=== PATIENT | female | born 1955 | race Caucasian/White ===

== ENCOUNTER → 2016-09-19 | Outpatient (CLI) | payer BC ==
--- NOTE | 2016-09-19 17:06 | MY ---
EXAMINATION: Left digital diagnostic mammogram with targeted ultrasound. HISTORY: Follow-up. Comparison: 03/14/2016. FINDINGS: Left CC, MLO, and ML projections obtained. Targeted ultrasound evaluation of the upper outer left breast. Again noted are postsurgical changes within the upper outer quadrant of the left breast. Mammographi carine, this appears similar without a definite nodular area noted. Sonographically there is a hypoechoic 3.6 x 1.3 cm vague masslike collection within the postoperativ e bed. Overall this appears slightly decreased in size, however, there are a few pockets of internal vascularity of uncertain etiology. IMPRESSION: BI-RADS category IV: Suspicious abnormality. There is likely heterogeneous postoperativ e changes noted within the upper outer quadrant, however, due to underlying vascularity ultrasound-g uided biopsy should be performed. THE FALSE-NEGATIVE RATE OF MAMMOGRAM IS APPROXIMATELY 10%. MANAGEMENT OF A PALPABLE ABNORMALITY MUST BE BASED UPON CLINICAL GROUNDS. SENSITIVITY FOR DETECTION OF ABNORMALITIES IN DENSE BREASTS IS LOW. NOTE: A letter will be sent to the patient regarding findings. [facility] -- LORI Jaeger [phone] - FAX [phone]
== END ==
LOC: MW.MAM 12:48
PROVIDERS: ATTEND Obstetrics & Gynecology
DX: R92.8 Other abnormal and inconclusive findings on diagnostic imaging of breast (principal)
CPT/HCPCS: 76641; G0206

== ENCOUNTER → 2016-10-16 | Outpatient (CLI) | payer BC | LOC: MW.LAB 07:56 | PROVIDERS: ATTEND Internal Medicine Critical Care Medicine | DX: A31.0 Pulmonary mycobacterial infection (principal) | CPT/HCPCS: 36415; 82565; 84132; 84460; 85025; 85652 ==

== ENCOUNTER → 2016-11-15 | Outpatient (CLI) | payer BC | LOC: MW.LAB 13:18 | PROVIDERS: ATTEND Internal Medicine Critical Care Medicine | DX: A31.0 Pulmonary mycobacterial infection (principal) | CPT/HCPCS: 36415; 82565; 84132; 84460; 85025; 85652 ==

== ENCOUNTER 2025-02-13 07:10 | Day surgery (SDC) | payer MEDICARE, OTHER ==
[2025-02-13] MEDS ORDERED: propofoL 500 MG/50 ML 50 ML ONE (07:31)
[2025-02-13] MEDS: Lactated Ringers 1,000 ML IV SCH (07:37)
[2025-02-13] MEDS ORDERED: dexmedeTOMIDine HCl 200 MCG/2 ML SDV ONE (08:45)
[2025-02-13] MEDS ORDERED: Propofol 200 MG/20 ML SDV ONE (09:27)
[2025-02-13 12:27] VITALS: BP 134/68; PULSE 54
== END 2025-02-13 10:52 | disposition home or self-care (01) ==
LOC: MW.SDS 07:10
PROVIDERS: ATTEND Surgery
DX: Z12.11 Encounter for screening for malignant neoplasm of colon (principal); D12.6 Benign neoplasm of colon, unspecified; K44.9 Diaphragmatic hernia without obstruction or gangrene; K31.7 Polyp of stomach and duodenum; K31.89 Other diseases of stomach and duodenum; K20.90 Esophagitis, unspecified without bleeding; K22.89 Other specified disease of esophagus; I12.9 Hypertensive chronic kidney disease with stage 1 through stage 4 chronic kidney disease, or unspecified chronic kidney disease; E11.22 Type 2 diabetes mellitus with diabetic chronic kidney disease; N18.9 Chronic kidney disease, unspecified; E66.9 Obesity, unspecified; Z86.16 Personal history of COVID-19; Z88.8 Allergy status to other drugs, medicaments and biological substances; Z91.040 Latex allergy status; Z91.018 Allergy to other foods; Z79.899 Other long term (current) drug therapy; Z79.890 Hormone replacement therapy; Z79.84 Long term (current) use of oral hypoglycemic drugs; Z87.891 Personal history of nicotine dependence; Z68.32 Body mass index [BMI] 32.0-32.9, adult
CPT/HCPCS: 43239; 45385; J2704; J7120; 00813